=== PATIENT | female | born 1985 | race American Indian/Alaskan Native ===

== ENCOUNTER 2019-12-29 18:42 | Emergency (ER) | payer SELFPAY ==
--- NOTE | 2019-12-29 21:58 | Event Note ---
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 Further treatment and workup at subsequent clinical providers discretion. Patient/guardian urged not to elope from the ED as their condition may be serious if not clinically assessed and managed. Initial orders include: UA, urine preg
[2019-12-29 22:56] LABS: HCG Qualitative,Urine Negative (Negative)
[2019-12-29 23:25] LABS: Bilirubin,Urine NEG (Negative); Blood,Urine MOD (Negative); Color,Urine Amber (Yellow); Mucus,Urine 1+ /HPF
[2019-12-29 23:38] LABS: WBC,Urine > 182.0 /HPF (0.0-6.0)
[2019-12-30] MEDS ORDERED: cephALEXin 500 MG CAP PO ONE (03:58)
[2019-12-30] MEDS ORDERED: metroNIDAZOLE 500 MG TAB PO ONE (04:50)
[2019-12-30] MEDS ORDERED: ONDANSETRON 4 MG ODT TAB PO ONE (04:51)
[2019-12-30] MEDS ORDERED: AZITHROMYCIN 250 MG TAB PO ONE (04:53)
[2019-12-30] MEDS ORDERED: LIDOCAINE-MPF (1%) 10 MG/1 ML VIAL 5 ML INFILTRATI ONE (04:53)
--- NOTE | 2019-12-30 05:01 | Emergency Department Report ---
ED Female HPI - General Chief complaint: Urogenital-Female Stated complaint: VAGINAL CLOTS/NAUSEA/PAIN Time Seen by Provider: 12/29/19 21:56 Source: patient Mode of arrival: Ambulatory Limitations: No Limitations - History of Present Illness Initial comments: Patient is A0 34-year-old, female with no past medical history who presents to the ED with acute onset persistent suprapubic pressure, dysuria, urinary frequency and urgency, vaginal discharge which she describes as yellowish green malodorous smell for the last 2 days. Patient denies dizziness, fever, chills, nausea, vomiting, diarrhea, change in vision, low back pain, vaginal bleeding, cough, sore throat, chest pain or shortness of breath. MD Complaint: vaginal discharge, dysuria, pelvic pain, possible STD -: Sudden, days(s) (2) Location: suprapubic, other (vagina) Radiation: non-radiating Severity scale (0 -10): 4 Quality: dull, aching Consistency: constant Improves with: none Worsens with: urination Are you Now?: No Last Menstrual Period: 12/21/19 EDC: 09/26/20 Associated Symptoms: denies other symptoms, vaginal discharge, dysuria. denies: vaginal bleeding, abdominal pain, nausea/vomiting, fever/chills, headaches, loss of appetite, hematuria, rash, seizure, shortness of breath, syncope, other - Related Data Sexually active: Yes : 1 Para: 1 A: 0 Previous Rx's Medication Instructions Recorded Last Taken Type Lidocain2.5%/Prilocai2.5% [Emla] 5 gm TP ONCE #1 tube 10/10/16 Unknown Rx Ferrous Sulfate [Feosol 325 MG tab] 325 mg PO TID #90 tablet 10/12/16 Unknown Rx Ibuprofen [Motrin 800 MG tab] 800 mg PO Q8HR PRN #30 tablet 10/12/16 Unknown Rx Fluconazole [Diflucan TAB] 150 mg PO ONCE #1 tablet 12/30/19 Unknown Rx cephALEXin [Keflex] 500 mg PO Q6HR #40 capsule 12/30/19 Unknown Rx metroNIDAZOLE [Flagyl] 500 mg PO Q12HR #14 tab 12/30/19 Unknown Rx Allergies Allergy/AdvReac Type Severity Reaction Status Date / Time No Known Allergies Allergy Verified 12/10/15 14:46 ED Review of Systems ROS: Stated complaint: VAGINAL CLOTS/NAUSEA/PAIN Other details as noted in HPI Constitutional: denies: chills, fever Eyes: denies: eye pain, eye discharge, vision change ENT: denies: ear pain, throat pain Respiratory: denies: cough, shortness of breath, wheezing Cardiovascular: denies: chest pain, palpitations Endocrine: no symptoms reported Gastrointestinal: denies: abdominal pain, nausea, diarrhea Genitourinary: urgency, dysuria, frequency, hematuria, discharge Musculoskeletal: denies: back pain, joint swelling, arthralgia Skin: denies: rash, lesions Neurological: denies: headache, weakness, paresthesias Psychiatric: denies: anxiety, depression Hematological/Lymphatic: denies: easy bleeding, easy bruising ED Past Medical Hx - Past Medical History Previous Medical History?: No Hx Hypertension: No Hx Congestive Heart Failure: No Hx Diabetes: No Hx Deep Vein Thrombosis: No Hx Renal Disease: No Hx Sickle Cell Disease: No Hx Seizures: No Hx Asthma: No Hx COPD: No - Surgical History Past Surgical History?: No - Social History Smoking Status: Never Smoker Substance Use Type: None - Medications Home Medications: Home Medications Medication Instructions Recorded Confirmed Last Taken Type Lidocain2.5%/Prilocai2.5% [Emla] 5 gm TP ONCE #1 tube 10/10/16 Unknown Rx Ferrous Sulfate [Feosol 325 MG tab] 325 mg PO TID #90 tablet 10/12/16 Unknown Rx Ibuprofen [Motrin 800 MG tab] 800 mg PO Q8HR PRN #30 tablet 10/12/16 Unknown Rx Fluconazole [Diflucan TAB] 150 mg PO ONCE #1 tablet 12/30/19 Unknown Rx cephALEXin [Keflex] 500 mg PO Q6HR #40 capsule 12/30/19 Unknown Rx metroNIDAZOLE [Flagyl] 500 mg PO Q12HR #14 tab 12/30/19 Unknown Rx ED Physical Exam - General Limitations: No Limitations General appearance: alert, in no apparent distress - Head Head exam: Present: atraumatic, normocephalic, normal inspection - Eye Eye exam: Present: normal appearance, PERRL, EOMI Pupils: Present: normal accommodation - ENT ENT exam: Present: normal exam, normal orophraynx, mucous membranes moist, TM's normal bilaterally, normal external ear exam - Neck Neck exam: Present: normal inspection, full ROM - Respiratory Respiratory exam: Present: normal lung sounds bilaterally. Absent: respiratory distress, wheezes, rales, rhonchi, chest wall tenderness, accessory muscle use - Cardiovascular Cardiovascular Exam: Present: normal rhythm, tachycardia, normal heart sounds. Absent: systolic murmur, diastolic murmur, rubs, gallop - GI/Abdominal GI/Abdominal exam: Present: soft, normal bowel sounds. Absent: tenderness, guarding, rebound, hyperactive bowel sounds, hypoactive bowel sounds - Bi-manual exam: Present: other (Pelvic exam deferred by patient; self-swabbed for Wet prep) - Extremities Exam Extremities exam: Present: normal inspection, full ROM, normal capillary refill - Back Exam Back exam: Present: normal inspection, full ROM. Absent: tenderness, CVA tenderness (R), CVA tenderness (L), muscle spasm, paraspinal tenderness, vertebral tenderness - Neurological Exam Neurological exam: Present: alert, oriented X3, CN II-XII intact, normal gait, reflexes normal - Psychiatric Psychiatric exam: Present: normal affect, normal mood - Skin Skin exam: Present: warm, dry, intact, normal color. Absent: rash ED Course Vital Signs 12/29/19 12/29/19 12/30/19 19:52 21:57 01:40 Temperature 98.8 F 98.8 F 97.8 F Pulse Rate 105 H 109 H 92 H Respiratory 18 18 18 Rate Blood Pressure 126/67 126/67 111/74 O2 Sat by Pulse 100 100 99 Oximetry ED Medical Decision Making - Medical Decision Making This is a 34-year-old female who presented to the ED with suprapubic pressure, dysuria, urinary frequency and urgency, yellowish-green vaginal discharge. In the ED, patient is alert and oriented 3 and is not in any distress. Urinalysis shows significant urinary tract infection. Wet prep shows moderate Trichomonas and Gardnerella vaginitis. Patient was treated in the ED with Flagyl for Trichomonas and also given initial oral antibiotics for UTI. Patient was empirically treated for gonorrhea and chlamydia based on the patient's risk factors. Patient was discharged home on medications and advised follow-up with the [facility] for further evaluation of STDs. Patient was also advised to return to the ED immediately if symptoms get worse. - Differential Diagnosis UTI; STD; Bacterial vaginosis; Trichomonas; Critical care attestation.: If time is entered above; I have spent that time in minutes in the direct care of this critically ill patient, excluding procedure time. ED Disposition Clinical Impression: Acute urinary tract infection, Trichomonal urethritis, Bacterial vaginosis, STD (sexually transmitted disease) Disposition: TO HOME OR SELFCARE Is pt being admited?: No Does the pt Need Aspirin: No Condition: Stable Instructions: Bacterial Vaginosis (ED), Trichomoniasis (ED), Urinary Tract Infection in Women (ED) Additional Instructions: Take medications with food, drink plenty of fluids and follow up with your primary care physician or [facility] in 3-5 days for reevaluation. Return to the ED immediately if symptoms get worse. Prescriptions: Fluconazole [Diflucan TAB] 150 mg PO ONCE #1 tablet metroNIDAZOLE [Flagyl] 500 mg PO Q12HR #14 tab cephALEXin [Keflex] 500 mg PO Q6HR #40 capsule [facility]errals: [facility]] - 3-5 Days Forms: STI Treatment and Prevention Time of Disposition: 05:02 Print Language: BELGIAN
[2019-12-30 06:13] VITALS: BP 125/87
== END 2019-12-30 05:18 | disposition home or self-care (01) ==
LOC: ED 18:42
DX: N39.0 Urinary tract infection, site not specified (principal); A59.03 Trichomonal cystitis and urethritis; N76.0 Acute vaginitis; A64 Unspecified sexually transmitted disease; Z79.1 Long term (current) use of non-steroidal anti-inflammatories (NSAID); Z79.899 Other long term (current) drug therapy
CPT/HCPCS: 81001; 81025; 87210; 96372; 99283; J0696; Q0162

== ENCOUNTER 2021-12-28 10:29 | Outpatient (CLI) | payer MEDICAID ==
[2021-12-28 11:31] VITALS: BP 119/61
[2021-12-28 12:30] LABS: Bilirubin,Urine Negative (Negative); Blood,Urine Negative (Negative); Color,Urine Yellow (Yellow); Urobilinogen,Urine < 2.0 mg/dL (<2.0)
[2021-12-28 12:31] LABS: RBC,Urine < 1.0 /HPF (0.0-6.0); WBC,Urine < 1.0 /HPF (0.0-6.0)
== END 2021-12-28 12:43 | disposition home or self-care (01) ==
LOC: TRG 10:29 → APU 10:30 → TRG 12:43
PROVIDERS: ATTEND Obstetrics & Gynecology
DX: O26.892 Other specified pregnancy related conditions, second trimester (principal); R10.9 Unspecified abdominal pain; M54.50 Low back pain, unspecified; Z3A.27 27 weeks gestation of pregnancy
CPT/HCPCS: 59025; 81001

== ENCOUNTER 2022-03-23 08:58 | Inpatient (IN) | payer MEDICAID ==
[2022-03-23] MEDS ORDERED: miSOPROStol 200 MCG TAB PR PRN (13:30)
[2022-03-23] MEDS ORDERED: LOPERAMIDE 2 MG CAP PO PRN (13:30)
[2022-03-23] MEDS ORDERED: ACETAMINOPHEN 325 MG TAB PO PRN (13:30)
[2022-03-23] MEDS ORDERED: TERBUTALINE 1 MG/1 ML INJ SUB-Q PRN (13:30)
[2022-03-23] MEDS ORDERED: METHYLERGONOVINE MALEATE 0.2 MG/ML VIAL IM PRN (13:30)
[2022-03-23] MEDS ORDERED: BUTORPHANOL 2 MG/1 ML INJ IV PRN ×2 (13:30)
[2022-03-23] MEDS ORDERED: ePHEDrine SULFATE 50 MG/1 ML INJ IV PRN (13:30)
[2022-03-23] MEDS ORDERED: LIDOCAINE (2%) 20 MG/1 ML VIAL 20 ML MDV INFILTRATI SCH (13:30)
[2022-03-23] MEDS ORDERED: CARBOPROST TROMETHAMINE 250 MCG/1 ML INJ IM PRN (13:30)
[2022-03-23] MEDS ORDERED: ONDANSETRON 4 MG/2 ML INJ IV PRN (13:30)
[2022-03-23] MEDS ORDERED: OXYTOCIN 10 UNIT/1 ML INJ IM PRN (13:30)
[2022-03-23] MEDS ORDERED: MINERAL OIL 30 ML ORAL LIQD PO PRN (14:00)
[2022-03-23] MEDS ORDERED: OXYTOCIN DRIP 30 UNITS/500 ML BAG IV SCH (14:00)
[2022-03-23 14:22] LABS: Hematocrit 28.6 % (30.3-42.9); Hemoglobin 9.4 gm/dl (10.1-14.3); Mean Corpuscular HGB Conc 33 % (30-34); Mean Corpuscular Volume 75 fl (79-97); Platelet Count 318 K/mm3 (140-440); Red Blood Count 3.83 M/mm3 (3.65-5.03); Red Cell Distribution Width 18.8 % (13.2-15.2)
--- NOTE | 2022-03-23 16:22 | History and Physical Report ---
History of Present Illness Date of examination: 03/23/22 Date of admission: 03/23/22 08:58 Chief complaint: Admitted for IOL at 39+5wks plus gestational diabetes. History of present illness: , BA 03/25/22. Diet controlled gest diabetes. Past History Past Medical History: no pertinent history - Obstetrical History Expected Date of Delivery: 03/25/22 Actual Gestation: 39 Week(s) 5 Day(s) : 4 Para: 1 Medications and Allergies Allergies Allergy/AdvReac Type Severity Reaction Status Date / Time No Known Allergies Allergy Verified 12/28/21 10:52 Home Medications Medication Instructions Recorded Confirmed Last Taken Type No.137/Iron/Folic Acd 1 each PO DAILY 12/28/21 12/28/21 12/21/21 History [[facility] Tablet] Active Meds: Active Medications Acetaminophen (Acetaminophen 325 Mg Tab) 650 mg PO Q4H PRN PRN Reason: Pain, Mild (1-3) Butorphanol Tartrate (Butorphanol 2 Mg/1 Ml Inj) 2 mg IV Q2H PRN PRN Reason: Pain , Severe (7-10) Butorphanol Tartrate (Butorphanol 2 Mg/1 Ml Inj) 1 mg IV Q2H PRN PRN Reason: Pain, Moderate(4-6) LABOR PAIN Carboprost Tromethamine (Carboprost Tromethamine 250 Mcg/1 Ml Inj) 250 mcg IM ONCE PRN PRN Reason: Uterine Bleeding Ephedrine Sulfate (Ephedrine Sulfate 50 Mg/1 Ml Inj) 10 mg IV Q2M PRN PRN Reason: Hypotension Oxytocin/Sodium Chloride (Pitocin/Ns 30 Unit/500ml) 30 units in 500 mls @ 2 mls/hr IV TITR ARLINE; Protocol Lactated Ringer's (Lactated Ringers) 1,000 mls @ 125 mls/hr IV DIRECT ARLINE Lidocaine (Lidocaine (2%) 20 Mg/1 Ml Vial 20 Ml Mdv) 20 ml INFILTRATI ONCE@1330 ARLINE Stop: 03/24/22 13:29 Loperamide HCl (Loperamide 2 Mg Cap) 2 mg PO ONCE PRN PRN Reason: give with Hemabate Methylergonovine Maleate (Methylergonovine Maleate 0.2 Mg/Ml Vial) 0.2 mg IM ONCE PRN PRN Reason: Uterine Bleeding Mineral Oil (Mineral Oil 30 Ml Oral Liqd) 30 ml PO QHS PRN PRN Reason: Constipation Misoprostol (Misoprostol 200 Mcg Tab) 800 mcg [place] ONCE PRN PRN Reason: Uterine Bleeding Ondansetron HCl (Ondansetron 4 Mg/2 Ml Inj) 4 mg IV Q8H PRN PRN Reason: Nausea And Vomiting Oxytocin (Oxytocin 10 Unit/1 Ml Inj) 10 unit IM ONCE PRN PRN Reason: Uterine Bleeding Terbutaline Sulfate (Terbutaline 1 Mg/1 Ml Inj) 0.25 mg SUB-Q ONCE PRN PRN Reason: Hyperstimulation/Hypertonicity Review of Systems All systems: negative - Vital Signs Vital signs: Vital Signs Pulse BP 98 H 116/61 03/23/22 10:16 03/23/22 10:16 Temp Pulse Resp BP Pulse Ox 92 H 116/61 100 03/23/22 16:15 03/23/22 10:16 03/23/22 16:15 - Physical Exam Lungs: Positive: Normal air movement Abdomen: Positive: normal appearance, soft, normal bowel sounds Genitourinary (Female): Positive: normal perenium Extremities: Positive: normal Deep Tendon Reflex Grade: Normal +2 - Obstetrical FHR: category 1 Uterine Contraction Pattern: Irregular Results Result Diagrams: 03/23/22 11:20 Abnormal lab results 03/23/22 Range/Units 11:20 Hgb 9.4 L (10.1-14.3) gm/dl Hct 28.6 L (30.3-42.9) % MCV 75 L (79-97) fl MCH 25 L (28-32) pg RDW 18.8 H (13.2-15.2) % All other labs normal. Assessment and Plan - Patient Problems (1) Gestational diabetes mellitus Current Visit: Yes Status: Acute (2) with 39 completed weeks gestation Current Visit: Yes Status: Acute Plan to address problem: For IOL.
[2022-03-24] MEDS: LACTATED RINGERS 1,000 ML IV SCH ×2 (03:30→06:41)
--- NOTE | 2022-03-24 07:51 | Anesthesia Consultation ---
Anesthesia Consult and Med Hx Date of service: 03/24/22 - Airway Anesthetic Teeth Evaluation: Good ROM Head & Neck: Adequate Mental/Hyoid Distance: Adequate Mallampati Class: Class II Intubation Access Assessment: Probably Good - Pulmonary Exam CTA: Yes - Cardiac Exam Cardiac Exam: RRR - Pre-Operative Health Status ASA Pre-Surgery Classification: ASA2 Proposed Anesthetic Plan: Epidural - Pulmonary Hx Smoking: No Hx Asthma: No COPD: No Hx Pneumonia: No - Cardiovascular System Hx Hypertension: No Hx Heart Attack/AMI: No Hx Angina: No - Central Nervous System Hx Seizures: No Hx Psychiatric Problems: No - Gastrointestinal Hx Gastroesophageal Reflux Disease: No - Endocrine Hx Renal Disease: No Hx End Stage Renal Disease: No Hx Liver Disease: No Hx Insulin Dependent Diabetes: No Hx Non-Insulin Dependent Diabetes: No Hx Hypothyroidism: No Hx Hyperthyroidism: No - Hematic Hx Anemia: No Hx Sickle Cell Disease: No - Other Systems Hx Alcohol Use: No
--- NOTE | 2022-03-24 07:52 | Progress Note ---
Labor Epidural - Labor Epidural Start Time: 07:34 Stop Time: 07:45 Performed by:: NELY JEFFERSON Procedure: Patient is requesting epidural for labor and pain. H&P, labs were reviewed. Patient IDed, all questions and concerns were answered, and consent was signed. Timeout was performed at bedside. Patient in sitting position. Sterile prep and drape was performed. 3ml of 1% lidocaine skin wheal at L[3]- L [4]. 17- gauge Tuohy epidural needle was advanced to loss of resistance with air technique 7cm. Negative CSF negative blood. Epidural catheter advanced to [12] centimeters. [negative] Aspiration [negative] test dose. Sterile dressing applied. Patient tolerated procedure.
[2022-03-24] MEDS ORDERED: diphenhydrAMINE 50 MG/ML VIAL IV PRN (08:00)
[2022-03-24] MEDS ORDERED: NALOXONE 2 MG/2 ML INJ IV PRN (08:00)
[2022-03-24] MEDS ORDERED: ePHEDrine SULFATE 50 MG/1 ML INJ IV PRN (08:00)
[2022-03-24] MEDS ORDERED: fentaNYL-BUPIV 2 MCG/ML-0.125% 200 MCG/100 ML BAG EPIDURAL SCH (08:00)
[2022-03-24] MEDS ORDERED: LACTATED RINGERS 250 ML IV SOLN IV ONE (08:00)
[2022-03-24] MEDS ORDERED: ONDANSETRON 4 MG/2 ML INJ IV PRN ×2 (08:00→11:00)
[2022-03-24] MEDS ORDERED: NalbUPHINE 10 MG/1 ML INJ IV PRN (09:00)
--- NOTE | 2022-03-24 10:38 | Procedure Note ---
OB Delivery Note - Delivery Date of Delivery: 03/24/22 Surgeon: MADHURI BRUMFIELD Estimated blood loss: 500cc - Vaginal Delivery presentation: vertex Delivery position: OA Intrapartum events: none Delivery induction: oxytocin Delivery augmentation: rupture of membranes, pitocin Delivery monitor: external FHT, external uterine, internal uterine Route of delivery: Delivery placenta: spontaneous, expressed Delivery cord: 3 umbilical vessels Episiotomy: none Delivery laceration: 2nd degree, other (midline.) Delivery repair: vicryl Anesthesia: epidural - A at 1 minute: 8 at 5 minutes: 9 Infant Gender: Male ([id number])
[2022-03-24] MEDS ORDERED: PROMETHAZINE 25 MG TAB PO PRN (11:00)
[2022-03-24] MEDS ORDERED: ACETAMINOPHEN 325 MG TAB PO PRN (11:00)
[2022-03-24] MEDS ORDERED: LANOLIN/ZINC/DIMETHICONE (LANSINOH) 7 GM TP PRN (11:00)
[2022-03-24] MEDS ORDERED: HYDROcodone/ACETAMINOPHEN 5-325 MG TAB PO PRN (11:00)
[2022-03-24] MEDS ORDERED: diphenhydrAMINE 25 MG CAP PO PRN (11:00)
[2022-03-24] MEDS ORDERED: KETOROLAC 30 MG/1 ML INJ IV PRN (11:00)
[2022-03-24] MEDS ORDERED: WITCH HAZEL/ GLYCERIN PAD TP PRN (11:00)
[2022-03-24] MEDS ORDERED: PROMETHAZINE 25 MG RECT SUPP PR PRN (11:00)
[2022-03-24] MEDS: IBUPROFEN 800 MG TAB PO SCH ×3 (15:07→22:04)
[2022-03-24] MEDS ORDERED: MAGNESIUM HYDROXIDE (MOM) ORAL LIQD UDC PO PRN (22:00)
[2022-03-24] MEDS: DOCUSATE SODIUM 100 MG CAP PO SCH (22:04)
[2022-03-25 01:08] LABS: Hematocrit 26.7 % (30.3-42.9); Hemoglobin 8.4 gm/dl (10.1-14.3)
[2022-03-25 08:26] VITALS: BP 118/57
[2022-03-25] MEDS: IBUPROFEN 800 MG TAB PO SCH (10:44)
[2022-03-25] MEDS: DOCUSATE SODIUM 100 MG CAP PO SCH (10:44)
--- NOTE | 2022-03-25 13:15 | Progress Note ---
Assessment and Plan - Patient Problems (1) Gestational diabetes mellitus Current Visit: Yes Status: Resolved (2) with 39 completed weeks gestation Current Visit: Yes Status: Resolved (3) Status post vaginal delivery Current Visit: Yes Status: Acute Plan to address problem: Stable. Wants to go home. Subjective - Subjective Date of service: 03/25/22 Principal diagnosis: Status post vag delivery day 1. Interval history: , BA 03/25/22. Diet controlled gest diabetes. Deliivered 03/24/22. No complaints today. Patient reports: appetite normal, voiding normally, pain well controlled, ambulating normally Naturita: doing well Objective - Vital Signs Latest vital signs: Vital Signs Temp Pulse Resp BP BP Pulse Ox Pulse Ox 03/25/22 09:52 98 03/25/22 08:26 22 118/57 03/25/22 00:40 97.5 F L 100 H 20 137/77 95 03/24/22 23:00 98 03/24/22 20:44 98.0 F 99 H 18 132/64 100 03/24/22 17:36 97.8 F 84 18 132/69 96 03/24/22 13:22 99 Intake and Output 03/24/22 03/25/22 03/25/22 23:59 07:59 15:59 Intake Total 120 240 Output Total 900 900 Balance -780 -660 Intake: Oral 120 240 Output: Urine 900 900 Void 900 900 Other: Total, Intake Amount 120 240 Total, Output Amount 900 900 # Voids Void 1 1 - Exam Lungs: Present: Normal air movement Abdomen: Present: normal appearance, soft, normal bowel sounds Uterus: Present: normal, firm Extremities: Present: normal Deep Tendon Reflex Grade: Normal +2 - Labs Labs: Abnormal lab results 03/25/22 Range/Units 00:24 Hgb 8.4 L (10.1-14.3) gm/dl Hct 26.7 L (30.3-42.9) %
--- NOTE | 2022-03-25 13:17 | Discharge Summary ---
Providers - Providers Date of Admission: 03/23/22 08:58 Date of discharge: 03/25/22 Attending physician: MADHURI BRUMFIELD MD Primary care physician: MADHURI BRUMFIELD MD Hospitalization Reason for admission: observation, induction of labor, IUP at term Delivery: Episiotomy: none Laceration: 2nd degree Incision: intact Other procedures: none complications: none Discharge diagnosis: IUP at term delivered baby: male Condition at discharge: Good Disposition: 01 HOME / SELF CARE / HOMELESS - Discharge Diagnoses (1) Gestational diabetes mellitus Status: Resolved (2) with 39 completed weeks gestation Status: Resolved (3) Status post vaginal delivery Status: Acute Plan - Provider Discharge Summary Activity: routine, no sex for 6 weeks, no heavy lifting 4 weeks, no strenuous exercise Diet: routine Instructions: routine Additional instructions: [] Smoking cessation referral if applicable(refer to patient education folder for contact #) [] Refer to [facility] Booklet Call your doctor immediately for: * Fever > 100.5 * Heavy vaginal bleeding ( >1 pad per hour) * Severe persistent headache * Shortness of breath * Reddened, hot, painful area to leg or breast * Drainage or odor from incision. * Keep incision clean and dry at all times and follow doctor's instructions regarding bathing/showering - Follow up plan Follow up: MADHURI BRUMFIELD MD [Primary Care Provider] - 7 Days
--- NOTE | 2022-03-25 15:11 | Post Anesthesia Evaluation ---
- Post Anesthesia Evaluation Patient Participated: Yes Airway Patent: Yes Stable Respiratory Function: Yes Nausea/Vomiting: No Temp > 96.8F: Yes Pain Manageable: Yes Adequeate Hydration: Yes Anesthesia Complications: No Block Receding Appropriately: Yes Patient on Ventilator: No
== END 2022-03-25 15:12 | disposition home or self-care (01) | DRG 775 ==
LOC: LD 08:58 → OB 03-24 12:13
PROVIDERS: ADMIT Obstetrics & Gynecology; ATTEND Obstetrics & Gynecology
PROC: 10E0XZZ Delivery of Products of Conception, External Approach (ICD-10-PCS; principal; 2022-03-24)
PROC: 0KQM0ZZ Repair Perineum Muscle, Open Approach (ICD-10-PCS; 2022-03-24)
PROC: 3E033VJ Introduction of Other Hormone into Peripheral Vein, Percutaneous Approach (ICD-10-PCS; 2022-03-24)
PROC: 3E0R3BZ Introduction of Anesthetic Agent into Spinal Canal, Percutaneous Approach (ICD-10-PCS; 2022-03-24)
PROC: 00HU33Z Insertion of Infusion Device into Spinal Canal, Percutaneous Approach (ICD-10-PCS; 2022-03-24)
DX: O24.420 Gestational diabetes mellitus in childbirth, diet controlled (principal); O70.1 Second degree perineal laceration during delivery; Z3A.39 39 weeks gestation of pregnancy; Z37.0 Single live birth; Z20.822 Contact with and (suspected) exposure to COVID-19
CPT/HCPCS: 36415; 59025; 82962; 85014; 85018; 85027; 86592; 86850; 86900; 86901; 96360; 96361; G0378; J3490; J2590; J7120; U0003